=== PATIENT | male | born 1995 | race Caucasian/White ===

== ENCOUNTER 2018-12-05 14:46 | Emergency (ER) | payer OTHER ==
[~2018-12-05] VITALS: Ht 190.5 cm; Wt 130.0 kg
[2018-12-05 14:48] VITALS: BP 130/67
[2018-12-05] MEDS ORDERED: LIDOcaine 1% w/epiNEPHrine 1:200,000 30ml vial IM ONE (15:00)
[2018-12-05] MEDS ORDERED: bacitracin 15gm ointment TP ONE (15:00)
== END 2018-12-05 15:49 | disposition home or self-care (01) ==
LOC: ER 14:47
DX: S91.012A Laceration without foreign body, left ankle, initial encounter (principal); Z88.2 Allergy status to sulfonamides; W26.8XXA Contact with other sharp object(s), not elsewhere classified, initial encounter; Y93.89 Activity, other specified; Y92.89 Other specified places as the place of occurrence of the external cause; Y99.8 Other external cause status
CPT/HCPCS: 12002; 99283